=== PATIENT | male | born 1975 | race Caucasian/White ===

== ENCOUNTER → 2024-09-04 | Outpatient (CLI) | payer OTHER, SELFPAY ==
--- NOTE | 2024-09-04 18:03 | RAD_ITS ---
PROCEDURE: CHEST PA AND LATERAL 09/04/2024 REASON FOR EXAM: SOB TECHNIQUE: Frontal and lateral views of the chest. COMPARISON: 11/15/2020 FINDINGS: No focal consolidations. No pleural effusion or pneumothorax. No acute fractures. Cardiac silhouette is unchanged. RAD/Chest PA and Lateral IMPRESSION: No focal consolidations. Reading Location: [id number]
== END | disposition home or self-care (01) ==
PROVIDERS: PCP Internal Medicine; Referring Provider Internal Medicine; Visit Provider Internal Medicine
DX: R06.02 Shortness of breath (principal)
CPT/HCPCS: 71046

== ENCOUNTER → 2025-02-16 | Outpatient (CLI) | payer OTHER, SELFPAY ==
--- NOTE | 2025-02-16 07:00 | CT_ITS ---
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 RADIATION DOSE SUMMARY: CTDlvol: 12.19 mGy DLP: 243.79 mGycm COMPARISON: PA and lateral chest x-ray of 09/04/2024. CT/Limited Chest CT Cardiac Only IMPRESSION: Limited imaging of the lungs demonstrates no acute process. Chronic appearing area peripheral posterior left lower lobe densities, includin g "string of pearls" component, likely due to remote injury. No pleural effusion or pneumothorax is seen in visualized areas. No adenopathy is noted. The visualized upper abdomen demonstrates no significant abnormality. Reading Location: [place] [id number]
--- NOTE | 2025-02-16 07:57 | CA.SCORE ---
Calcium Scoring Date of Study:: 02/16/25 Indications Indications: screenings Coronary Calcium Scoring: High-resolution Computed Tomographic imaging of the chest was performed on [02/16/25 ], with particular attention paid to the coronary arteries. Images from the examination were analyzed for the presence and extent of coronary artery calcification , using coronary calcium quantification software. The patient tolerated the procedure well and there were no complications. The results of the coronary calcification analysis are provided below. Findings Coronary Artery Left Main (LM): 0 Left Anterior Descending (LAD): 39.7 Left Circumflex (LCX): 0 Right Coronary Artery (RCA): 0 Total Agatston Score: 39.7 Percentile Rankin Calcium Scoring Interpretation: Different methods to categorize the overall amount of coronary plaque. Overall amount CAC SIS Visual of coronary plaque P1 Mild -100 <2 1-2 vessels with mild amount of plaque P2 Moderate 101-300 3-4 1-2 vessels with moderate amount, 3 vessels with mild amount of plaque P3 Severe 301-999 5-7 3 vessels with moderate amount, 1 vessel with severe amount of plaque P4 Extensive >1000 >8 2-3 vessels with severe amount of plaque Calcium Score: Mild: 1-2 vessels w/mild amount of plaque Conclusion: Mild Plaque in LAD
== END | disposition home or self-care (01) ==
PROVIDERS: PCP Internal Medicine; Referring Provider Internal Medicine; Visit Provider Internal Medicine
DX: E78.019 Familial hypercholesterolemia, unspecified (principal)
CPT/HCPCS: 75571; 76380